=== PATIENT | female | born 1975 | race Caucasian/White ===

== ENCOUNTER 2017-02-11 00:05 | Emergency (ER) | payer OTHER ==
[~2017-02-11] VITALS: Ht 154.9 cm; Wt 86.2 kg
[~2017-02-11 00:05] MED LIST: ALBUTEROL0.09 MG/A4 IH; CIPRO250 MG PO; COL100 PO; FLO4 PO; METOPROLOL TART25 M1 PO; MOTRIN800 MG PO; PRI20 PO; PULMICORT0.5 MG/2 M IH; ROB750 PO; ZESTRIL20 MG PO; ZITHROMAX250 M1 PO
[2017-02-11 00:09] VITALS: Ht 154.9 cm; Wt 86.2 kg
[2017-02-11 06:35] VITALS: BP 147/89
== END 2017-02-11 06:35 | disposition home or self-care (01) ==
LOC: ED 00:05
DX: B34.9 Viral infection, unspecified (principal); S33.5XXA Sprain of ligaments of lumbar spine, initial encounter; I88.9 Nonspecific lymphadenitis, unspecified; I10 Essential (primary) hypertension; E11.9 Type 2 diabetes mellitus without complications; Z88.1 Allergy status to other antibiotic agents; Z88.8 Allergy status to other drugs, medicaments and biological substances; W18.39XA Other fall on same level, initial encounter; Y93.89 Activity, other specified; Y92.89 Other specified places as the place of occurrence of the external cause; Y99.8 Other external cause status

== ENCOUNTER 2018-09-13 14:14 | Emergency (ER) | payer SELFPAY ==
[~2018-09-13] VITALS: Ht 154.9 cm; Wt 77.6 kg
[2018-09-13 14:20] VITALS: Ht 154.9 cm; Wt 77.6 kg
[2018-09-13 15:20] LABS: CALCIUM 8.7 mg/dL (8.5-10.1); CHLORIDE SERUM 105 mmol/L (98-107); GFR1 > 60 mL/min; GLUCOSE SERUM 119 mg/dL (74-106); SODIUM SERUM 140 mmol/L (136-145)
[2018-09-13 15:24] LABS: ALBUMIN 2.9 g/dL (3.4-5.0); ALKALINE PHOSPHATASE 47 U/L (46-116); ALT/SGPT 15 U/L (14-59); AST/SGOT 6 U/L (15-37); BILIRUBIN TOTAL 0.2 mg/dL (0.20-1.00); MAGNESIUM 1.9 mg/dL (1.8-2.4); TOTAL PROTEIN, SERUM 6.7 g/dL (6.4-8.2)
[2018-09-13 17:43] VITALS: BP 126/72
== END 2018-09-13 17:43 | disposition home or self-care (01) ==
LOC: ED 14:14
PROVIDERS: Emergency Medicine
DX: B34.9 Viral infection, unspecified (principal); R20.2 Paresthesia of skin; I10 Essential (primary) hypertension; E11.9 Type 2 diabetes mellitus without complications; E78.00 Pure hypercholesterolemia, unspecified; Z87.442 Personal history of urinary calculi; Z88.6 Allergy status to analgesic agent; Z88.8 Allergy status to other drugs, medicaments and biological substances
CPT/HCPCS: 36415; 82962

== ENCOUNTER 2018-12-24 19:55 | Emergency (ER) | payer OTHER ==
[~2018-12-24] VITALS: Ht 154.9 cm; Wt 88.9 kg
[2018-12-24 20:15] VITALS: Ht 154.9 cm; Wt 88.9 kg
[2018-12-24 22:11] VITALS: BP 151/111
== END 2018-12-24 22:54 | disposition home or self-care (01) ==
LOC: ED 19:55
DX: G44.209 Tension-type headache, unspecified, not intractable (principal)
CPT/HCPCS: Q0162

== ENCOUNTER 2019-04-23 13:31 | Emergency (ER) | payer MEDICAID ==
[~2019-04-23] VITALS: Ht 154.9 cm; Wt 90.7 kg
[2019-04-23 13:35] VITALS: Ht 154.9 cm; Wt 90.7 kg
[2019-04-23 14:30] VITALS: BP 205/108
[2019-04-23 14:30] LABS: BASOPHIL % 0.8 % (0-2); PLATELET COUNT 443 x10^3mcL (130-400); RED CELL DISTRIBUTION WIDTH 16.6 % (11.5-14.5)
[2019-04-23 14:46] LABS: microscopic required? NO
[2019-04-23 14:49] LABS: ALKALINE PHOSPHATASE 71 U/L (46-116); ALT/SGPT 32 U/L (14-59); AST/SGOT 14 U/L (15-37); BILIRUBIN TOTAL 0.2 mg/dL (0.20-1.00); CARBON DIOXIDE 29.9 mmol/L (21-32); CHLORIDE SERUM 99 mmol/L (98-107); CREATININE SERUM 0.8 mg/dL (0.6-1.0); GFR1 > 60 mL/min; GLUCOSE SERUM 100 mg/dL (74-106); LIPASE 76 IU/L (73-393); POTASSIUM SERUM 4.4 mmol/L (3.5-5.1); SODIUM SERUM 136 mmol/L (136-145)
[2019-04-23 14:56] LABS: UA SPECIFIC GRAVITY 1.015 (1.005-1.035); urine erythrocyte NEGATIVE (NEGATIVE)
[2019-04-23 14:59] LABS: ALBUMIN 3.2 g/dL (3.4-5.0); CALCIUM 8.9 mg/dL (8.5-10.1)
== END 2019-04-23 16:00 | disposition home or self-care (01) ==
LOC: ED 13:31
PROVIDERS: Emergency Medicine
DX: R10.84 Generalized abdominal pain (principal); R10.32 Left lower quadrant pain; R10.12 Left upper quadrant pain; F17.210 Nicotine dependence, cigarettes, uncomplicated; I10 Essential (primary) hypertension; E11.9 Type 2 diabetes mellitus without complications; E78.00 Pure hypercholesterolemia, unspecified; Z87.442 Personal history of urinary calculi; Z86.73 Personal history of transient ischemic attack (TIA), and cerebral infarction without residual deficits; Z88.6 Allergy status to analgesic agent; Z88.8 Allergy status to other drugs, medicaments and biological substances
CPT/HCPCS: 99406; J2270; J2405

== ENCOUNTER 2019-12-12 20:15 | Emergency (ER) | payer MEDICAID ==
[~2019-12-12] VITALS: Ht 154.9 cm; Wt 107.6 kg
[2019-12-12 20:38] VITALS: Ht 154.9 cm; Wt 107.6 kg
[2019-12-12 23:14] VITALS: BP 151/85
== END 2019-12-12 23:13 | disposition home or self-care (01) ==
LOC: ED 20:15
DX: S30.0XXA Contusion of lower back and pelvis, initial encounter (principal); I10 Essential (primary) hypertension; E11.9 Type 2 diabetes mellitus without complications; E78.00 Pure hypercholesterolemia, unspecified; Z88.6 Allergy status to analgesic agent; Z88.8 Allergy status to other drugs, medicaments and biological substances; W10.9XXA Fall (on) (from) unspecified stairs and steps, initial encounter; Y93.89 Activity, other specified; Y92.89 Other specified places as the place of occurrence of the external cause; Y99.8 Other external cause status
CPT/HCPCS: J2270